=== PATIENT | female | born 1935 | race Caucasian/White ===

== ENCOUNTER 2017-08-05 17:24 | Emergency (ER) | payer MEDICARE, OTHER ==
[2017-08-05 18:59] LABS: Urine Bilirubin Negative (NEGATIVE); Urine Blood Negative /ul (NEGATIVE); Urine Ketone Negative (NEGATIVE); Urine Nitrite Negative (NEGATIVE); Urine Protein Negative (NEGATIVE); Urine Urobilinogen Normal (NORMAL)
--- NOTE | 2017-08-05 19:10 | ERNOTE ---
Medical Problem HPI - Narrative Date of Service: 08/05/17 - General Chief Complaint: General Assessment Time Seen by Provider: 08/05/17 18:51 Source: patient Exam Limitations: no limitations - Immun/Allergies/Home Medications Immunizations: IMMUNIZATION HX Immunizations Up to Date Yes History of Influenza Vaccine Yes Hx Pneumococcal Vaccination Yes Allergies/Adverse Reactions: Allergies Penicillins Allergy (Severe, Verified 08/05/17 17:47) Itching hives Home Medications: HOME MEDICATIONS Acetaminophen [Tylenol] 650 mg PO QID PRN #14 tablet 06/10/15 [Last Taken Unknown] Furosemide [Lasix] 40 mg PO DAILY #30 tablet 06/10/15 [Last Taken Unknown] Metoprolol Tartrate [Lopressor] 25 mg PO BID #60 tablet 06/10/15 [Last Taken Unknown] Potassium Chloride [Klor-Con 10] 10 meq PO DAILY #30 tablet.sa 06/10/15 [Last Taken Unknown] Warfarin Sodium [Coumadin] 2 mg PO DAILY@1700 #30 tablet 06/10/15 [Last Taken Unknown] Amiodarone HCl [Cordarone] 200 mg PO BID 06/20/15 [Last Taken Unknown] - History of Present History Narrative: Pt. comes in with c/o weakness and fatigue that has been increasing for weeks to the point that she has been unable to ambulate by herself or perform her ADLs. Pt. does not have 24 hour care but does have Home health aids and nurses that come in a few times a week. Review of Systems - Review of Systems Constitutional: Present: weakness, fatigue, malaise. Absent: recent illness, fever, chills EYE: Present: no symptoms reported ENT: Present: no symptoms reported Respiratory: Present: no symptoms reported. Absent: shortness of breath, cough , wheezing Cardiology: Present: no symptoms reported. Absent: chest pain, edema Gastrointestinal/Abdominal: Present: no symptoms reported. Absent: nausea, vomiting, diarrhea, abdominal pain Genitourinary: Present: no symptoms reported. Absent: frequency, decreased urinary output Musculoskeletal: Present: no symptoms reported. Absent: back pain, joint pain Skin: Present: no symptoms reported Neurological: Present: no symptoms reported. Absent: headache, dizziness/light- headedness, numbness, tingling All Other Systems: All systems neg except as marked - Patient's Past Medical History Patient History - Medical: UTI'S Patient History - Cardiac/Respiratory: Atrial Fibrillation, CHF, Hyperlipidemia Patient History - Cancer: No Hx of Cancer Patient History - Surgical Procedures: Total Hip Replacement, Other Patient History - Other: None LMP (females 10-50): Menopausal - Social History Living Situations: home Abuse History: No History of abuse Psych History: No pertinent hx Smoking Status: Never smoker Alcohol Use: none Drug Use: none - Immunizations Immunizations Up to Date: Yes Hx Pneumococcal Vaccination: Yes History of Influenza Vaccine: Yes Physical Exam - Physical Exam General Appearance: Present: wd/wn, alert, no apparent distress Head Exam: Present: normal inspection, no evidence of injury Eye Exam: Normal inspection: bilateral, PERRL: bilateral, EOMI: bilateral Ears, Nose, Throat: Present: normal ENT inspection, normal pharynx Neck: Present: normal inspection, nontender. Absent: lymphadenopathy (R), lymphadenopathy (L) Respiratory: Present: no respiratory distress, normal breath sounds, no accessory muscle use, chest nontender, lungs clear Cardiovascular/Chest: Present: regular rate, rhythm, no murmur, normal peripheral pulses Gastrointestinal/Abdominal: Present: normal bowel sounds, nontender, nondistended, soft, no organomegaly Back Exam: Present: normal inspection, normal range of motion, no CVA tenderness , no vertebral tenderness Extremity Exam: Present: normal inspection, non-tender, normal range of motion, no edema Neurological Exam: Present: alert, oriented, normal mood/affect, shore man II-XII nml as tested, normal cerebellar test, motor weakness - generalized Skin Exam: Present: normal color, warm/dry. Absent: pallor, skin rash ED Progress - Date and Time Seen: Date and Time: 08/05/17 20:27 Discussed with Family that there is no acute problem with pt. and therefore I have noc criteria for admission but we could admit her if they want to pay for it out of pocket potentially. Pt. and family decline this so encouraged family to find placement for pt. [id number] by calling [facility] in the area to discuss. Daughter will stay with pt. over the weekend and they will look for NH placement. - Results and Orders Patient's Lab Results:: I have reviewed the patient's lab results. Results and Orders: Laboratory Results - last 24 hr 08/05/17 08/05/17 08/05/17 18:52 19:15 19:15 WBC 7.7 RBC 4.97 Hgb 15.1 Hct 45.0 MCV 90.5 MCH 30.4 MCHC 33.6 RDW 15.6 H Plt Count 177 MPV 9.5 Immature Gran % (Auto) 0.80 H Immature Gran # (Auto) 0.06 H Neutrophils % 69.1 Lymphocytes % 19.3 L Monocytes % 9.3 H Eosinophils % 1.0 Basophils % 0.5 Nucleated RBC % 0.0 Neutrophils # 5.3 Lymphocytes # 1.5 Monocytes # 0.7 Eosinophils # 0.1 Absolute Basophils 0.0 Sodium 141 Plasma Sodium 141 Potassium 3.4 Chloride 103 Carbon Dioxide 30.0 Anion Gap 11.4 BUN 32 H Creatinine 1.26 Est GFR (Non-Af Amer) 43 L D BUN/Creatinine Ratio 25.4 H Random Glucose 95 Calcium 8.7 Calcium Adj for Albumin 9.1 Phosphorus 3.7 Magnesium 2.1 Total Bilirubin 0.5 AST 21 ALT 20 Alkaline Phosphatase 86 B-Natriuretic Peptide Total Protein 6.4 Albumin 3.1 L Urine Color Yellow Urine Appearance Clear Urine pH 7.0 Ur Specific Cameron 1.010 Urine Protein Negative Urine Glucose (UA) Negative Urine Ketones Negative Urine Blood Negative Urine Nitrate Negative Urine Bilirubin Negative Urine Urobilinogen Normal Ur Leukocyte Esterase Negative Urine RBC None seen Urine WBC Trace H Ur Epithelial Cells 0-5 Urine Bacteria Trace Urine Culture Comments No culture indicated 08/05/17 19:15 WBC RBC Hgb Hct MCV MCH MCHC RDW Plt Count MPV Immature Gran % (Auto) Immature Gran # (Auto) Neutrophils % Lymphocytes % Monocytes % Eosinophils % Basophils % Nucleated RBC % Neutrophils # Lymphocytes # Monocytes # Eosinophils # Absolute Basophils Sodium Plasma Sodium Potassium Chloride Carbon Dioxide Anion Gap BUN Creatinine Est GFR (Non-Af Amer) BUN/Creatinine Ratio Random Glucose Calcium Calcium Adj for Albumin Phosphorus Magnesium Total Bilirubin AST ALT Alkaline Phosphatase B-Natriuretic Peptide 388 Total Protein Albumin Urine Color Urine Appearance Urine pH Ur Specific Cameron Urine Protein Urine Glucose (UA) Urine Ketones Urine Blood Urine Nitrate Urine Bilirubin Urine Urobilinogen Ur Leukocyte Esterase Urine RBC Urine WBC Ur Epithelial Cells Urine Bacteria Urine Culture Comments - Vital Signs Patient's Vital Signs:: I have reviewed the patient's vital signs. Vital Signs: Vital Signs 08/05/17 17:39 Temperature 36.6 C Pulse Rate 64 Respiratory 16 Rate Blood Pressure 143/75 O2 Sat by Pulse 92 Oximetry - Progress/Reassessment Chief Complaint: General Assessment Progress:: Unchanged Departure Clinical Impression: Generalized weakness - Departure Disposition: Home self-care Condition: Good Instructions: Weakness, [id number] Additional Instructions: Please follow up with Dr benton as planned and follow up with Dr Patrick in 2- 3 days. Referrals: Arnel Patrick DO [Primary Care Provider] -
[2017-08-05 19:11] LABS: Urine Appearance Clear; Urine Bacteria TRACE; Urine Color Yellow; Urine RBC None Seen /hpf (0-5); Urine WBC TRACE /hpf (0-5)
[2017-08-05 19:27] LABS: Hemoglobin 15.1 gm/dL (12.5-16.0); Mean Cell Volume 90.5 fl (78-100); Mean Corpuscular Hemoglobin 30.4 pg (27-31); Mean Corpuscular Hgb Conc 33.6 g/dl (32-36); Mean Platelet Volume 9.5 fl (6.0-9.5); Neutrophil # 5.3 K/mm3 (1.3-6.0); Neutrophil % 69.1 % (42-75.0); Platelet Count 177 K/mm3 (150-450); Red Blood Count 4.97 M/mm3 (4.2-5.4); Red Cell Distribution Width 15.6 % (11.5-14.0); White Blood Count 7.7 K/mm3 (4.0-10.5)
[2017-08-05 19:44] LABS: Albumin * 3.1 gm/dl (3.4-5.0); Anion Gap 11.4 mmol/L (6.8-13.8); BUN/Creatinine Ratio 25.4 (9.0-21.6); Bilirubin, Total 0.5 mg/dL (0.0-1.1); Ca. Corrected For Albumin 9.1 mg/dL (8.4-10.2); Calcium * 8.7 mg/dL (7.9-10.9); Magnesium 2.1 mg/dL (1.2-2.8); Phosphorus 3.7 mg/dL (2.2-4.2); Potassium 3.4 mmol/L (3.4-4.6); Total Protein 6.4 gm/dL (6.2-8.2)
[2017-08-05 20:08] VITALS: BP 145/66
[2017-08-05] MEDS ORDERED: ACETAMINOPHEN 500 MG TABLET PO ONE (20:27)
== END 2017-08-05 20:59 | disposition home or self-care (01) ==
LOC: ER 17:24
DX: R53.1 Weakness (principal)